=== PATIENT | male | born 1985 | race Caucasian/White ===

== ENCOUNTER 2016-06-18 23:44 | Emergency (ER) | payer MEDICARE ==
[2016-06-19 00:27] VITALS: BP 141/84
--- NOTE | 2016-06-19 00:50 | ER Document Report ---
ED General - General Chief Complaint: Psych Problem Stated Complaint: PSYCH EVAL Notes: Patient is a 30-year-old male with past medical history of bipolar disorder managed with lithium presents by EMS. Patient denies any concerns or complaints. States that he was "forced" to come here by his ex-girlfriend and was encouraged to do so by paramedics. He states he was sitting on his couch drinking beer and apparently his ex-girlfriend called the police. He denies any suicidal or homicidal ideation. EMS report states the patient was calm, cooperative and denied these complaints to him. He did not demonstrate any aggression and had not demonstrated any violence or aggression towards his ex- girlfriend. He denies any acute medical complaints. States he's been compliant with medications. TRAVEL OUTSIDE OF THE [place] IN LAST 30 DAYS: No - Related Data Allergies/Adverse Reactions: No Known Allergies Allergy (Verified 02/04/14 15:49) Past Medical History - General Information source: Patient - Social History Smoking Status: Current Every Day Smoker Chew tobacco use (# tins/day): No Frequency of alcohol use: Occasional Drug Abuse: None Lives with: Spouse/Significant other Family History: Reviewed & Not Pertinent - Past Medical History Cardiac Medical History: Reports: Hx Hypertension Psychiatric Medical History: Reports: Hx Bipolar Disorder Surgical Hx: Negative - Immunizations Hx Diphtheria, Pertussis, Tetanus Vaccination: No Review of Systems - Review of Systems Notes: Constitutional: Negative for fever. HENT: Negative for sore throat. Eyes: Negative for visual changes. Cardiovascular: Negative for chest pain. Respiratory: Negative for shortness of breath. Gastrointestinal: Negative for abdominal pain, vomiting or diarrhea. Genitourinary: Negative for dysuria. Musculoskeletal: Negative for back pain. Skin: Negative for rash. Neurological: Negative for headaches, weakness or numbness. 10 point ROS negative except as marked above and in HPI. Physical Exam - Vital signs Vitals: Pulse Resp BP Pulse Ox 80 16 141/84 H 99 06/19/16 00:20 06/19/16 00:20 06/19/16 00:20 06/19/16 00:20 Interpretation: Hypertensive Notes: PHYSICAL EXAMINATION: GENERAL: Well-appearing, well-nourished and in no acute distress. HEAD: Atraumatic, normocephalic. EYES: Pupils equal round and reactive to light, extraocular movements intact, sclera anicteric, conjunctiva are normal. ENT: nares patent, oropharynx clear without exudates. Moist mucous membranes. NECK: Normal range of motion, supple without lymphadenopathy LUNGS: Breath sounds clear to auscultation bilaterally and equal. No wheezes rales or rhonchi. HEART: Regular rate and rhythm without murmurs ABDOMEN: Soft, nontender, normoactive bowel sounds. No guarding, no rebound. No masses appreciated. EXTREMITIES: Normal range of motion, no pitting or edema. No cyanosis. NEUROLOGICAL: No focal neurological deficits. Moves all extremities spontaneously and on command. PSYCH: Normal mood, normal affect. SKIN: Warm, Dry, normal turgor, no rashes or lesions noted. Course - Re-evaluation Re-evalutation: 06/19/16 00:47 Patient presents by EMS apparently after his ex-girlfriend stated that "he was demonstrating signs of a psychotic break like last time". The girlfriend did not answer her phone when she was contacted. EMS report to the nursing staff stated only the girlfriend's concern. They did not note any evidence of aggression. There was no trauma to the ex-girlfriend. Patient states that all he was doing was sitting on the couch drinking beer when she called the police. He denies any suicidal or homicidal ideation. He does not appear intoxicated. He is requesting to go home. He is calm and cooperative at time of my exam although initially he did require some redirection by security after it took me 30 minutes come back to the room. Patient does not reflect any acute safety concerns at this time and he does not meet involuntary commitment criteria. He is denying any acute medical concerns and would like to be discharged home. At this time will discharge per patient's request. - Vital Signs Vital signs: Temp Pulse Resp BP Pulse Ox 80 16 141/84 H 99 06/19/16 00:20 06/19/16 00:20 06/19/16 00:20 06/19/16 00:20 Discharge - Discharge Clinical Impression: Bipolar disorder Qualifiers: Active/Remission status: in remission of unspecified degree Qualified Code(s): F31.70 - Bipolar disorder, currently in remission, most recent episode unspecified Condition: Good Disposition: HOME, SELF-CARE Additional Instructions: Please return if you develop thoughts of wanting to harm yourself, hurt others, take excessive medications, began hearing voices or seeing things, or have any other symptoms that are concerning to you.
== END 2016-06-19 00:59 | disposition home or self-care (01) ==
LOC: ER 23:44
DX: F31.70 Bipolar disorder, currently in remission, most recent episode unspecified (principal); F17.200 Nicotine dependence, unspecified, uncomplicated
CPT/HCPCS: 99284

== ENCOUNTER 2016-06-19 19:12 | Emergency (ER) | payer MEDICARE ==
[2016-06-19] MEDS ORDERED: HALOPERIDOL LACTATE INJ 5 MG/1 ML VIAL IM ONE (19:54)
[2016-06-19] MEDS ORDERED: LORAZEPAM INJ 2 MG/1 ML VIAL IM ONE (19:57)
[2016-06-19] MEDS ORDERED: DIPHENHYDRAMINE HCL 50 MG/ML VIAL IM ONE (19:58)
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
--- NOTE | 2016-06-19 20:47 | EKG REPORT ---
SEVERITY:- ABNORMAL ECG - SINUS TACHYCARDIA CONSIDER LEFT VENTRICULAR HYPERTROPHY : Confirmed by: Gunjan Woodall 19-Jun-2016 20:47:08
[2016-06-19 20:55] LABS: ABSOLUTE BASOPHILS # (AUTO) 0.1 10^3/uL (0.0-0.2); ABSOLUTE EOSINOPHILS # (AUTO) 0.1 10^3/uL (0.0-0.6); ABSOLUTE LYMPHOCYTES (AUTO) 3.5 10^3/uL (0.5-4.7); ABSOLUTE MONOCYTES (AUTO) 1.2 10^3/uL (0.1-1.4); ABSOLUTE NEUT (AUTO) 10.7 10^3/uL (1.7-8.2); BASOPHILS % (AUTO) 0.4 % (0-2); EOSINOPHILS % (AUTO) 0.8 % (0-6); HEMATOCRIT 50.1 % (37.9-51.0); HEMOGLOBIN 17.3 g/dL (13.5-17.0); HGB HCT DIFFERENCE 1.8; LYMPHOCYTES % (AUTO) 22.4 % (13-45); MEAN CORPUSCULAR HEMOGLOBIN 31.6 pg (27.0-33.4); MEAN CORPUSCULAR HGB CONC 34.5 g/dL (32.0-36.0); MEAN CORPUSCULAR VOLUME 92 fl (80-97); MONOCYTES % (AUTO) 7.7 % (3-13); RED BLOOD COUNT 5.48 10^6/uL (4.35-5.55); RED CELL DISTRIBUTION WIDTH 12.8 % (11.5-14.0); SEGMENTED NEUTROPHILS % (AUTO) 68.7 % (42-78); WHITE BLOOD COUNT 15.6 10^3/uL (4.0-10.5)
[2016-06-19 20:58] LABS: APPEARANCE,URINE CLEAR; BILIRUBIN,URINE NEGATIVE (NEGATIVE); GLUCOSE, URINE NEGATIVE (NEGATIVE); KETONES,URINE NEGATIVE (NEGATIVE); LEUKOCYTE ESTERASE,URINE NEGATIVE (NEGATIVE); NITRITE,URINE NEGATIVE (NEGATIVE); PROTEIN,URINE NEGATIVE (NEGATIVE); URINE SPECIFIC GRAVITY 1.002; UROBILINOGEN,URINE NEGATIVE mg/dL (<2.0)
[2016-06-19 21:14] LABS: URINE BARBITURATES SCREEN NEGATIVE; URINE METHADONE SCREEN NEGATIVE; URINE OPIATES LOW NEGATIVE; URINE PHENCYCLIDINE SCREEN NEGATIVE
[2016-06-19 21:19] LABS: ALANINE AMINOTRANSFERASE 59 U/L (21-72); ALBUMIN 5.6 g/dL (3.5-5.0); ALCOHOL 186 mg/dL (NONE DETECTED); ALKALINE PHOSPHATASE 95 U/L (38-126); ASPARTATE AMINO TRANSFERASE 79 U/L (17-59); BILIRUBIN,DIRECT 0.4 mg/dL (0.0-0.4); BILIRUBIN,TOTAL 1.2 mg/dL (0.2-1.3); BLOOD UREA NITROGEN 9 mg/dL (7-20); CALCIUM 10.4 mg/dL (8.4-10.2); CARBON DIOXIDE 20 mmol/L (22-30); CHLORIDE 101 mmol/L (98-107); CREATININE RESULT 0.97 mg/dL (0.52-1.25); GLUCOSE 123 mg/dL (75-110); LITHIUM 0.5 mEq/L (0.6-1.2); POTASSIUM 4.1 mmol/L (3.6-5.0); SODIUM 143.5 mmol/L (137-145); TOTAL PROTEIN 9.1 g/dL (6.3-8.2)
[2016-06-19 21:20] LABS: ANION GAP 23 (5-19)
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
[2016-06-20] MEDS: NICOTINE 21 MG/24 HR PATCH.TD24 TD PRN (14:50)
[2016-06-20] MEDS ORDERED: OLANZAPINE 5 MG TAB.RAPDIS PO ONE (16:04)
[2016-06-20] MEDS: OLANZAPINE 5 MG TABLET PO SCH (16:12)
[2016-06-20] MEDS: LITHIUM CARBONATE 300 MG CAPSULE PO SCH (16:13)
--- NOTE | 2016-06-20 19:42 | ER Document Report ---
Doctor's Note Notes: 06/20/16 19:41 Rounds are being made in the evening at approximate 7:30 PM. Patient is being evaluated and treated for bipolar disorder, primarily manic. His lithium level is subtherapeutic at 0.5 on his admission. Patient's alcohol level is 186. White count was 15,600, but no signs of an infectious process. Patient's hemoglobin is 17.3. He is a heavy cigarette smoker. Other lab studies are relatively unremarkable. Vital signs are essentially normal. Patient appears to be medically stable for transfer or discharge. Mental health has assessed the patient and recommend that he stay overnight while getting him back on his medications correctly. Kash Agee M.D.
[2016-06-20] MEDS ORDERED: NICOTINE 21 MG/24 HR PATCH.TD24 TD ONE (20:49)
[2016-06-20] MEDS ORDERED: BENZTROPINE MESYLATE 1 MG TABLET PO SCH (22:00)
[2016-06-21] MEDS ORDERED: LORAZEPAM INJ 2 MG/1 ML VIAL IM ONE (02:32)
[2016-06-21] MEDS ORDERED: LORAZEPAM 1 MG TABLET PO ONE (02:35)
--- NOTE | 2016-06-21 05:44 | ER Document Report ---
Doctor's Note Notes: 06/21/16 05:43 Patient previously was shown to have some evidence for alcohol withdrawal. After patient received Ativan IM and Ativan by mouth, there was no further evidence for withdrawal, and the patient was resting comfortably and vital signs were stable. We'll continue Ativan by mouth 1 mg twice a day.
--- NOTE | 2016-06-21 06:08 | ER Document Report ---
ED General - General Chief Complaint: ETOH Abuse Stated Complaint: PSYCH EVAL TRAVEL OUTSIDE OF THE [place] IN LAST 30 DAYS: No - Related Data Allergies/Adverse Reactions: No Known Allergies Allergy (Verified 02/04/14 15:49) Past Medical History - General Information source: Patient - Social History Smoking Status: Current Every Day Smoker Frequency of alcohol use: Heavy Drug Abuse: None Lives with: Spouse/Significant other Family History: Reviewed & Not Pertinent - Past Medical History Cardiac Medical History: Reports: Hx Hypertension Psychiatric Medical History: Reports: Hx Bipolar Disorder - Immunizations Hx Diphtheria, Pertussis, Tetanus Vaccination: No Physical Exam - Vital signs Vitals: Temp Pulse Resp BP Pulse Ox 98.8 F 63 16 148/90 H 97 06/19/16 19:38 06/19/16 19:38 06/19/16 19:38 06/19/16 19:38 06/19/16 19:38 Course - Vital Signs Vital signs: Temp Pulse Resp BP Pulse Ox 98.4 F 85 18 140/78 H 100 06/20/16 15:07 06/21/16 02:45 06/20/16 15:07 06/21/16 02:45 06/20/16 15:07 - Laboratory Result Diagrams: 06/19/16 20:35 06/19/16 20:35 Laboratory results interpreted by me: 06/19/16 06/19/16 20:35 20:35 WBC 15.6 H Hgb 17.3 H Absolute Neutrophils 10.7 H Carbon Dioxide 20 L Anion Gap 23 H Glucose 123 H Calcium 10.4 H AST 79 H Total Protein 9.1 H Albumin 5.6 H Salicylates < 1.0 L Acetaminophen < 10 L [place] 0.5 L Discharge - Discharge Clinical Impression: Aggression Bipolar disorder Qualifiers: Active/Remission status: in remission of unspecified degree Qualified Code(s): F31.70 - Bipolar disorder, currently in remission, most recent episode unspecified Condition: Fair Disposition: PSYCH HOSP/UNIT
[2016-06-21] MEDS: NICOTINE 21 MG/24 HR PATCH.TD24 TD PRN (09:36)
[2016-06-21] MEDS: LITHIUM CARBONATE 300 MG CAPSULE PO SCH (09:36)
[2016-06-21] MEDS: OLANZAPINE 5 MG TABLET PO SCH (09:36)
[2016-06-21] MEDS ORDERED: LORAZEPAM 1 MG TABLET PO SCH (10:00)
[2016-06-21] MEDS ORDERED: AMLODIPINE BESYLATE 10 MG TABLET PO ONE (12:45)
[2016-06-21] MEDS ORDERED: METOPROLOL TARTRATE 50 MG TABLET PO ONE (12:45)
--- NOTE | 2016-06-21 16:23 | PSYCHOLOGICAL NOTE ---
Psych Note - Psych Note Psych Note: Patient has been accepted to [facility] and will transfer today via [facility]. Patient is recommended to continue under IVC and follow through with placement. Unspecified Bipolar and Related Disorder, per history Unspecified Alcohol Use Disorder
--- NOTE | 2016-06-21 17:31 | ER Document Report ---
Doctor's Note Notes: 06/21/16 17:30 Shift department is here to transport the patient at this time. He is cooperative, however he thinks he is going home. There are no medical issues identified today that would preclude transfer to a psychiatric facility.
[2016-06-21 18:36] VITALS: BP 138/94
== END 2016-06-21 17:30 ==
LOC: ER 19:12
DX: F31.70 Bipolar disorder, currently in remission, most recent episode unspecified (principal); Z78.1 Physical restraint status; F41.9 Anxiety disorder, unspecified; R25.1 Tremor, unspecified; R45.850 Homicidal ideations; I10 Essential (primary) hypertension; F17.210 Nicotine dependence, cigarettes, uncomplicated; R00.0 Tachycardia, unspecified
CPT/HCPCS: 93005; 99285; 96372; 36415; 80307 ×4; 80178; 85025; 80053; 81001; 93010; A9270 ×7; J1200; J1630; J3490 ×2; J2060 ×2

== ENCOUNTER 2017-11-29 11:34 | Emergency (ER) | payer MEDICARE ==
[2017-11-29] MEDS ORDERED: OLANZAPINE 5 MG TAB.RAPDIS PO ONE (14:10)
[2017-11-29 14:27] LABS: ABSOLUTE EOSINOPHILS # (AUTO) 0.2 10^3/uL (0.0-0.6); ABSOLUTE LYMPHOCYTES (AUTO) 1.7 10^3/uL (0.5-4.7); ABSOLUTE MONOCYTES (AUTO) 0.7 10^3/uL (0.1-1.4); ABSOLUTE NEUT (AUTO) 8.3 10^3/uL (1.7-8.2); BASOPHILS % (AUTO) 0.4 % (0-2); EOSINOPHILS % (AUTO) 1.5 % (0-6); HEMATOCRIT 47.5 % (37.9-51.0); HEMOGLOBIN 16.5 g/dL (13.5-17.0); LYMPHOCYTES % (AUTO) 15.7 % (13-45); MEAN CORPUSCULAR HEMOGLOBIN 31.8 pg (27.0-33.4); MEAN CORPUSCULAR HGB CONC 34.7 g/dL (32.0-36.0); MEAN CORPUSCULAR VOLUME 92 fl (80-97); MONOCYTES % (AUTO) 6.8 % (3-13); PLATELET COUNT 281 10^3/uL (150-450); RED BLOOD COUNT 5.18 10^6/uL (4.35-5.55); RED CELL DISTRIBUTION WIDTH 13.1 % (11.5-14.0); SEGMENTED NEUTROPHILS % (AUTO) 75.6 % (42-78); TOTAL CELLS COUNTED % (AUTO) 100 %
[2017-11-29 14:38] LABS: ACETAMINOPHEN < 10 ug/mL (10-30); ALANINE AMINOTRANSFERASE 34 U/L (21-72); ALBUMIN 4.7 g/dL (3.5-5.0); ALCOHOL < 10 mg/dL (NONE DETECTED); ALKALINE PHOSPHATASE 67 U/L (38-126); ANION GAP 14 (5-19); ASPARTATE AMINO TRANSFERASE 34 U/L (17-59); BILIRUBIN,DIRECT 0.4 mg/dL (0.0-0.4); BLOOD UREA NITROGEN 9 mg/dL (7-20); CALCIUM 10.1 mg/dL (8.4-10.2); CARBON DIOXIDE 22 mmol/L (22-30); CHLORIDE 103 mmol/L (98-107); GLUCOSE 106 mg/dL (75-110); LITHIUM 0.5 mEq/L (0.6-1.2); POTASSIUM 3.9 mmol/L (3.6-5.0); TOTAL PROTEIN 8.1 g/dL (6.3-8.2)
[2017-11-29 14:39] LABS: SALICYLATE < 1.0 mg/dL (2.0-20.0)
[2017-11-29 14:43] LABS: APPEARANCE,URINE CLEAR; BILIRUBIN,URINE NEGATIVE (NEGATIVE); COLOR,URINE STRAW; GLUCOSE, URINE NEGATIVE (NEGATIVE); KETONES,URINE NEGATIVE (NEGATIVE); LEUKOCYTE ESTERASE,URINE NEGATIVE (NEGATIVE); NITRITE,URINE NEGATIVE (NEGATIVE); PROTEIN,URINE NEGATIVE (NEGATIVE); URINE SPECIFIC GRAVITY 1.003; UROBILINOGEN,URINE NEGATIVE mg/dL (<2.0)
[2017-11-29 14:58] LABS: URINE AMPHETAMINES SCREEN NEGATIVE; URINE BARBITURATES SCREEN NEGATIVE; URINE BENZODIAZEPINES SCREEN NEGATIVE; URINE COCAINE SCREEN NEGATIVE; URINE MARIJUANA (THC) SCREEN NEGATIVE; URINE METHADONE SCREEN NEGATIVE; URINE PHENCYCLIDINE SCREEN NEGATIVE
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
--- NOTE | 2017-11-29 16:02 | PSYCHOLOGICAL NOTE ---
Psych Note - Psych Note Psych Note: Reason for Consult: Manic Consent permissions: Patient's girlfriend; Tracy at bedside per patient's request [facility], Tate, girlfriend reporting that pt needs his lithium levels checked. reports they went to [facility] for mental health check. states he was given a shot of abilify. reports he has not slept in days. Patient discloses that he has not slept in 48 hours. He reports that he has been taking his medication however has been drinking "gallons" of water and thinks he is flushed his system. He disclosed that he did go to his appointment to get his monthly Abilify shot from Dr. Connell at [facility] in [place]. 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 She reports that they have been staying with her mother and father and has noticed the patient drinking a lot more water than he normally has in the past. She disclosed he went to [facility] to get [facility] medication however because they live up here decided to come to this hospital for the patient's manic episode. She discloses that the director, Mona, is hoping to contact clinician speak about the case. Patient is alert and orientated to person, place, time and circumstance. Mood is flat with flat affect. Patient denies suicidal and homicidal ideation. Delusions are absent however patient does present with some odd behaviors i.e. smearing his stool in the bathroom. Eye contact was well-maintained. Conversational speech was monotone. Attention and concentration are poor. Insight, judgment, impulse control are poor. Chart Review Conducted: 1430 attending nurse noted that patient had smeared stool over bathroom w/no reason why. patient is subtherapeutic on his lithium Medication recommendations per [facility]'s contracted psychiatrist Dr. Richa GONZALEZ are as follows: restart home medications [place] 600mg twice daily Diagnosis 296.80 (F31.9) Unspecified Bipolar and Related Disorder, per history Impression/Plan: Patient is recommended for IVC for overnight mental health observation. Patient is currently manic and engaging in bizarre behavior i.e. smearing stool over the bathroom. Patient is subtherapeutic on his lithium. Medication recommendations have been provided. Patient will be reevaluated. Dr. Stone was consulted and the care management this patient; attending physician is in agreement with recommendations and disposition.
[2017-11-29] MEDS ORDERED: LITHIUM CARBONATE 300 MG CAPSULE PO ONE (16:08)
[2017-11-29] MEDS ORDERED: HALOPERIDOL LACTATE INJ 5 MG/1 ML VIAL IM ONE (17:39)
[2017-11-29] MEDS ORDERED: DIPHENHYDRAMINE HCL 50 MG/ML VIAL IM ONE (17:39)
[2017-11-29] MEDS: LITHIUM CARBONATE 300 MG CAPSULE PO SCH (17:52)
[2017-11-29] MEDS: METOPROLOL TARTRATE 50 MG TABLET PO SCH (17:55)
[2017-11-29] MEDS ORDERED: BENZTROPINE MESYLATE INJ 2 MG/2 ML AMPULE IM ONE (19:10)
[2017-11-29] MEDS ORDERED: OLANZAPINE INJ/PF 10 MG SDV IM ONE (19:10)
--- NOTE | 2017-11-29 22:26 | EKG REPORT ---
SEVERITY:- ABNORMAL ECG - SINUS RHYTHM CONSIDER LEFT VENTRICULAR HYPERTROPHY : Confirmed by: Jessica Weaver MD 29-Nov-2017 22:25:42
[2017-11-30] MEDS ORDERED: HALOPERIDOL LACTATE INJ 5 MG/1 ML VIAL IM ONE ×2 (04:54→15:35)
[2017-11-30] MEDS ORDERED: DIPHENHYDRAMINE HCL 50 MG/ML VIAL IM ONE (04:55)
[2017-11-30] MEDS ORDERED: LORAZEPAM INJ 2 MG/1 ML VIAL IM ONE (05:39)
[2017-11-30] MEDS: LITHIUM CARBONATE 300 MG CAPSULE PO SCH ×2 (09:40→17:39)
[2017-11-30] MEDS: AMLODIPINE BESYLATE 10 MG TABLET PO SCH (09:40)
[2017-11-30] MEDS: BENZTROPINE MESYLATE INJ 2 MG/2 ML AMPULE IM SCH (09:41)
[2017-11-30] MEDS: OLANZAPINE INJ/PF 10 MG SDV IM SCH ×2 (09:41→17:58)
[2017-11-30] MEDS: METOPROLOL TARTRATE 50 MG TABLET PO SCH (09:42)
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
[2017-11-30] MEDS ORDERED: CHLORPROMAZINE HCL INJ 25 MG/1 ML AMPULE IM PRN (14:14)
[2017-11-30] MEDS ORDERED: CLONIDINE 0.2 MG/24 HR PATCH.TDWK TD ONE (15:37)
[2017-11-30] MEDS ORDERED: ZIPRASIDONE MESYLATE INJ/PF 20 MG SDV IM ONE (17:44)
[2017-12-01] MEDS ORDERED: MIDAZOLAM 2 MG/2 ML INJ IM ONE (00:52)
[2017-12-01] MEDS ORDERED: ZIPRASIDONE MESYLATE INJ/PF 20 MG SDV IM ONE (00:52)
[2017-12-01] MEDS: BENZTROPINE MESYLATE INJ 2 MG/2 ML AMPULE IM SCH (10:09)
[2017-12-01] MEDS: LITHIUM CARBONATE 300 MG CAPSULE PO SCH ×2 (10:10→17:34)
[2017-12-01] MEDS: OLANZAPINE INJ/PF 10 MG SDV IM SCH ×2 (10:10→17:34)
[2017-12-01] MEDS: AMLODIPINE BESYLATE 10 MG TABLET PO SCH (10:10)
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
[2017-12-01] MEDS: HALOPERIDOL LACTATE INJ 5 MG/1 ML VIAL IM SCH (17:35)
[2017-12-01 18:09] LABS: ABSOLUTE BASOPHILS # (AUTO) 0.1 10^3/uL (0.0-0.2); ABSOLUTE EOSINOPHILS # (AUTO) 0.2 10^3/uL (0.0-0.6); ABSOLUTE LYMPHOCYTES (AUTO) 1.4 10^3/uL (0.5-4.7); ABSOLUTE MONOCYTES (AUTO) 0.7 10^3/uL (0.1-1.4); ABSOLUTE NEUT (AUTO) 9.8 10^3/uL (1.7-8.2); BASOPHILS % (AUTO) 0.7 % (0-2); EOSINOPHILS % (AUTO) 1.8 % (0-6); HEMATOCRIT 48.2 % (37.9-51.0); HEMOGLOBIN 16.3 g/dL (13.5-17.0); LYMPHOCYTES % (AUTO) 11.3 % (13-45); MEAN CORPUSCULAR HEMOGLOBIN 31.9 pg (27.0-33.4); MEAN CORPUSCULAR HGB CONC 33.8 g/dL (32.0-36.0); MEAN CORPUSCULAR VOLUME 95 fl (80-97); MONOCYTES % (AUTO) 5.6 % (3-13); PLATELET COUNT 269 10^3/uL (150-450); RED BLOOD COUNT 5.09 10^6/uL (4.35-5.55); RED CELL DISTRIBUTION WIDTH 13.5 % (11.5-14.0); SEGMENTED NEUTROPHILS % (AUTO) 80.6 % (42-78); TOTAL CELLS COUNTED % (AUTO) 100 %; WHITE BLOOD COUNT 12.2 10^3/uL (4.0-10.5)
[2017-12-01 18:28] LABS: ALANINE AMINOTRANSFERASE 41 U/L (21-72); ALBUMIN 4.2 g/dL (3.5-5.0); ALKALINE PHOSPHATASE 68 U/L (38-126); ANION GAP 7 (5-19); ASPARTATE AMINO TRANSFERASE 60 U/L (17-59); BILIRUBIN,DIRECT 0.6 mg/dL (0.0-0.4); BLOOD UREA NITROGEN 12 mg/dL (7-20); CALCIUM 10.1 mg/dL (8.4-10.2); CARBON DIOXIDE 27 mmol/L (22-30); CHLORIDE 105 mmol/L (98-107); CREATINE KINASE 1413 U/L (55-170); GLUCOSE 95 mg/dL (75-110); SODIUM 139.4 mmol/L (137-145); TOTAL PROTEIN 7.3 g/dL (6.3-8.2)
[2017-12-01] MEDS ORDERED: HALOPERIDOL LACTATE INJ 5 MG/1 ML VIAL IM ONE (19:27)
[2017-12-01] MEDS ORDERED: KETAMINE HCL INJ 500 MG/10 ML VIAL IM ONE (19:33)
[2017-12-02] MEDS ORDERED: MIDAZOLAM 2 MG/2 ML INJ IM ONE (01:12)
[2017-12-02] MEDS: HALOPERIDOL LACTATE INJ 5 MG/1 ML VIAL IM SCH ×4 (02:17→18:00)
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
[2017-12-02] MEDS: LITHIUM CARBONATE 300 MG CAPSULE PO SCH ×2 (11:37→18:00)
[2017-12-02] MEDS: OLANZAPINE INJ/PF 10 MG SDV IM SCH ×2 (11:37→18:00)
[2017-12-02] MEDS: BENZTROPINE MESYLATE INJ 2 MG/2 ML AMPULE IM SCH (11:37)
[2017-12-02] MEDS: AMLODIPINE BESYLATE 10 MG TABLET PO SCH (11:37)
[2017-12-03] MEDS ORDERED: LORAZEPAM 1 MG TABLET PO ONE (03:02)
[2017-12-03] MEDS: LITHIUM CARBONATE 300 MG CAPSULE PO SCH ×2 (10:34→18:54)
[2017-12-03] MEDS: AMLODIPINE BESYLATE 10 MG TABLET PO SCH (10:34)
[2017-12-03] MEDS: HALOPERIDOL LACTATE INJ 5 MG/1 ML VIAL IM SCH ×3 (10:35→18:53)
[2017-12-03] MEDS: OLANZAPINE INJ/PF 10 MG SDV IM SCH ×2 (10:35→18:53)
[2017-12-03] MEDS: BENZTROPINE MESYLATE INJ 2 MG/2 ML AMPULE IM SCH (10:35)
--- NOTE | 2017-12-03 17:58 | ER Document Report ---
Doctor's Note Notes: 12/03/17 17:57 Patient is currently more calm and cooperative in no acute distress. Vital signs are stable. Awaiting for psychology/psychiatry reevaluation.
[2017-12-04] MEDS: BENZTROPINE MESYLATE INJ 2 MG/2 ML AMPULE IM SCH (09:22)
[2017-12-04] MEDS: OLANZAPINE INJ/PF 10 MG SDV IM SCH (09:24)
[2017-12-04] MEDS: HALOPERIDOL LACTATE INJ 5 MG/1 ML VIAL IM SCH (09:24)
[2017-12-04] MEDS: AMLODIPINE BESYLATE 10 MG TABLET PO SCH (09:24)
[2017-12-04] MEDS: LITHIUM CARBONATE 300 MG CAPSULE PO SCH (09:29)
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
--- NOTE | 2017-12-04 10:31 | ER Document Report ---
Doctor's Note Notes: 12/04/17 10:25 Rounds: Chart reviewed and patient interviewed. Patient seems to have shown significant improvement as he is now calm and cooperative and not belligerent or hostile as he was a few days ago. Vital signs are all normal. Lab studies have been normal with the exception of an elevated CPK which could be attributable to the patient's activity level as well as the multiple IM injections of medications. Mental health was planning to discharge the patient for follow-up in [place] later today, but patient seemed to be confused and not mentally stable like he had been on previous assessments. Patient appears to be medically clear for discharge or transfer. A change of plans: Patient is going to be admitted to [place] as an inpatient. Kash Agee MD
[2017-12-04 12:22] VITALS: BP 149/89
--- NOTE | 2017-12-04 19:00 | PSYCHOLOGICAL NOTE ---
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 Patient irritable and unable to engage the Clinician at this time. No Medication Recommendations at this time. Diagnosis: 296.80 (F31.9) Unspecified Bipolar and Related Disorder, per history R/0 291.9 (F10.99) Unspecified alcohol related disorder Impression/Plan: Patient is recommended to continue IVC. Patient continues to function in a manic state and has extreme outbursts. Behavioral Healthcare team is actively looking for placement. Dr. Stone was consulted on the care and management of this patient; attending physician is in agreement with recommendations and disposition.
== END 2017-12-04 12:37 | disposition home or self-care (01) ==
LOC: ER 11:34
DX: F30.9 Manic episode, unspecified (principal)
CPT/HCPCS: 93005; 96376; 99285; 96372; 96374; 96375; 36415; 80307 ×4; 82550; 80178; 85025; 80053; 81001; 93010; J2250 ×2; J0515 ×6; J3230; A9270 ×8; J1200 ×2; J1630 ×6; J3490 ×7; J2060; J3486 ×2